=== PATIENT | female | born 1950 | race Caucasian/White ===

== ENCOUNTER 2024-08-14 16:08 | Emergency (ER) | payer MEDICARE, BC, SELFPAY ==
--- OUTSIDE RECORDS SUMMARY | 2024-08-14 16:09 | XMS_ITS | Encounter Summary ---
Author Organization [place] Address [address] [place] [address]. [place] [address] Care Team Providers Care Credit Associate Name Role Phone Chase Mueller MD Unavailable Coming Loren Dawson MD Unavailable + [phone] Doc Willis MD Unavailable Coming Loren Dawson MD Primary Care Provid er Doc Willis MD Unavailable Chase Mueller MD Unavailable Doc Willis MD Unavailable Encounter Details Date Type Department Care Team (Late st Contact Info) Description 07/25/2023 [facility] Medical Advice [facility] [address] [place] [phone] Timothy Hurtado Social History Tobacco Use Types Packs/Day Years Used Date Smoking Tobacco: Never Passive Smoke Exposure: Never Smokeless Tobacco: Never Alcohol Use Standard Drinks/Week Comments Yes 0 (1 standard drink = 0.6 oz pur e alcohol) one drink per month Social Connection and Isolat ion Panel [NHANES] Answer Date Recorded In a typical week, how many times do you talk on the phone with family, friends, or neighbors? More than three times a week 05/14/2023 How often do you get togethe r with friends or relatives? Three times a week 05/14/2023 How often do you attend [facility] or rastafarian services? More than 4 times per year 05/14/2023 Do you belong to any clubs o r organizations such as holiness groups, unions, fraternal or athletic groups, or school groups? Yes 05/14/2023 How often do you attend meet ings of the clubs or organizations you belong to? More than 4 times per year 05/14/2023 Are you , , di vorced, , never , or living with a partner? 05/14/2023 AUDIT-C Answer Date Recorded Q1: How often do you have a drink containing alc ohol? Monthly or less 05/14/2023 Q2: How many drinks containi ng alcohol do you have on a typical day when you are drinking? 1 or 2 05/14/2023 Q3: How often do you have si x or more drinks on one occasion? Never 05/14/2023 PHQ-2 Answer Date Recorded PHQ-2 Score 0 05/14/2023 [facility] - Occupational Stress Questionnaire Answer Date Recorded Do you feel stress - tense, restless, nervous, or anxious, or unable to sleep at night because your mind is troubled all the time - these days? To some extent 05/14/2023 Exercise Vital Sign Answer Date Recorde d On average, how many days pe r week do you engage in moderate to strenuous exercise (like a brisk walk)? 1 day 05/14/2023 On average, how many minutes do you engage in exercise at this level? 10 min 05/14/2023 Adolescent Education Answer Date Record ed Getting School Help Needed Not on file 11/16 Food Insecurity Answer Date Recorded Within the past 12 months, d id you worry that your food would run out before you got money to buy more? No 05/14/2023 Within the past 12 months, d id the food you bought just not last and you didn t have money to get more? No 05/14/2023 Housing Stability Answer Date Recorded Do you have housing? (Leandro g is defined as stable permanent housing and does not include staying outside in a car, in a tent, in an abandoned building, in an overnight penitentiary, or couch-surfing.) Yes 05/14/2023 Are you worried about losing your housing? No 05/14/2023 Financial Resource Strain Answer Date R ecorded Within the past 12 months, h ave you or your family members you live with been unable to get utilities (heat, electricity) when it was really needed? No 05/14/2023 Transportation Needs Answer Date Record ed Within the past 12 months, h as lack of transportation kept you from medical appointments, getting your medicines, non-medical meetings or appointments, work, or from getting things that you need? No 05/14/2023 Interpersonal Safety Answer Date Record ed Do you feel physically and e motionally safe where you currently live? Yes 05/14/2023 Within the past 12 months, h ave you been hit, slapped, kicked or otherwise physically hurt by someone? No 05/14/2023 Within the past 12 months, h ave you been humiliated or emotionally abused in other ways by your partner or ex-partner? No 05/14/2023 Comments No Sex and Gender Information Value Date Recorded Sex Assigned at Not on file Legal Sex Female 3:30 AM SCRAP CARRIER Gender Identity Not on file Sexual Orientation Not on file documented as of this encounter Plan of Treatment Upcoming Encounters Date Type Department Care Team (Late st Contact Info) Description 09/14/2024 8:45 AM CDT Lab [facility] [id number] [place] [phone] 09/17/2024 2:00 PM CDT Office Visit [facility] [id number] [place] [phone] [place] Dawson [place] [id number] [place] [address] documented as of this encounter Visit Diagnoses Not on filedocumented in this encounter Additional Health Concerns Assessment Noted Time PHQ-9 Depression Total Score: 1 12/30/19 21 7:28 AM SCRAP CARRIER documented as of this encounter Care Teams Credit Associate Relationship Specialty Start Date End Date Coming Loren Dawson [place] [id number] [place] [id number] PCP - General Family Medicine 02/24/22 [place] [address] [place] [address] Assigned Musculoskeletal Provider 12/04/19 10/03/23 [place] [address] [place] [address] Assigned PCP 01/15/21 Doc Willis MD [address] [place] [address] Dermatology 11/20/21 Doc Willis MD [address] [place] [address] Assigned Surgical Provider 05/19/22 [place] [address] [place] [address] Assigned Musculoskeletal Provider 01/04/24 Doc Willis MD [address] [place] [address] Assigned Dermatology Provider 05/03/24 documented as of this encounter
--- OUTSIDE RECORDS SUMMARY | 2024-08-14 16:09 | XMS_ITS | Encounter Summary ---
Author Organization [place] Address [address] [place] [address]. [place] [address] Care Team Providers Care Print Shop Chief Clerk Name Role Phone Louisa Kraus MD Primary Care Provider Chase Mueller MD Unavailable Haritha Brooks MD Unavailable [phone] Coming Loren Dawson MD Unavailable + [phone] Doc Willis MD Unavailable Coming Loren Dawson MD Primary Care Provid er Doc Willis MD Unavailable Chase Mueller MD Unavailable Doc Willis MD Unavailable Reason for Visit * Reason Comments Medication Refill Encounter Details Date Type Department Care Team (Late st Contact Info) Description 03/01/[address] [phone] [place] [address] [facility] [place] [address] Medication Refill Social History Tobacco Use Types Packs/Day Years Used Date Smoking Tobacco: Never Smokeless Tobacco: Never Alcohol Use Standard Drinks/Week Comments Yes 0 (1 standard drink = 0.6 oz pur e alcohol) one drink per month PHQ-2 Answer Date Recorded PHQ-2 Score 0 12/28/2020 Comments No Sex and Gender Information Value Date Recorded Sex Assigned at Not on file Legal Sex Female 3:30 AM HAT BRAIDER Gender Identity Not on file Sexual Orientation Not on file COVID-19 Exposure Response Date Recorded In the last month, have you been in contact with someone who was confirmed or suspected to have Coronavirus / COVID-19? No / Unsure 02/01/2021 7:34 AM HAT BRAIDER documented as of this encounter Miscellaneous Notes * Telephone Encounter - Radha Sheth RN - 03/02/2021 4:02 PM HAT BRAIDER Prescription approved per [facility] Refill Protocol. Radha Sheth RN [facility] -- Triage Nurse BRAIDER documented in this encounter Plan of Treatment Upcoming Encounters Date Type Department Care Team (Late st Contact Info) Description 09/14/2024 8:45 AM CDT Lab [facility] [address] [place] [phone] 09/17/2024 2:00 PM CDT Office Visit [facility] [address] [place] [phone] [place] [address] [place], [place] [phone] documented as of this encounter Visit Diagnoses Diagnosis Hyperlipidemia with target LDL less than 130 Other and unspecified hyperlipidemia HTN, goal below 140/90 Unspecified essential hypertension documented in this encounter Additional Health Concerns Infection Onset Date Last Indicated Resolved Time Rule Out COVID-19 04/05/2021 04/05/2021 04/05/2021 10:13 PM HAT BRAIDER COVID-19 04/05/2021 04/05/2021 04/26/2021 11:4 0 PM CDT Rule Out COVID-19 09/04/2021 09/04/2021 09/05/2021 10:01 AM CDT Assessment Noted Time PHQ-9 Depression Total Score: 1 12/30/19 21 7:28 AM HAT BRAIDER documented as of this encounter Care Teams Print Shop Chief Clerk Relationship Specialty Start Date End Date Louisa Kraus MD PCP - General Family Practice 05/07/14 02/23/22 [place] [address] [place], [place] [id number] PCP - General Family Medicine 02/24/22 [place] [address] [place] [address] Assigned Musculoskeletal Provider 12/04/19 10/03/23 Haritha Brooks MD [address] [place] [address] Assigned Surgical Provider 03/06/20 [place] [address] [place] [address] Assigned PCP 01/15/21 Doc Willis MD [address] [place] [address] Dermatology 11/20/21 Doc Willis MD [address] [place] [address] Assigned Surgical Provider 05/19/22 [place] [address] [place] [address] Assigned Musculoskeletal Provider 01/04/24 Doc Willis MD [address] [place] [address] Assigned Dermatology Provider 05/03/24 documented as of this encounter
--- OUTSIDE RECORDS SUMMARY | 2024-08-14 16:09 | XMS_ITS | Encounter Summary ---
Author Organization [place] Address [address] [place] [address]. [place] [address] Care Team Providers Care Advertising Intern Name Role Phone Chase Mueller MD Unavailable Coming Loren Dawson MD Unavailable + [phone] Doc Willis MD Unavailable Coming Loren Dawson MD Primary Care Provid er Doc Willis MD Unavailable Chase Mueller MD Unavailable Doc Willis MD Unavailable Reason for Visit * Reason Comments Medication Refill Encounter Details Date Type Department Care Team (Late st Contact Info) Description 03/22/[address] [phone] [place] [address] [place] [address] Medication Refill Social History Tobacco Use Types [...] on file Legal Sex Female 3:30 AM MARKET MANAGER Gender Identity Not on file Sexual Orientation Not on file COVID-19 Exposure Response Date Recorded In the last 10 days, have yo u been in contact with someone who was confirmed or suspected to have Coronavirus/COVID-19? No / Unsure 03/14/2022 10:48 AM MARKET MANAGER documented as of this encounter Miscellaneous Notes * Telephone Encounter - Nan Delgado RN - 03/23/2022 9:20 AM MARKET MANAGER Routing refill request to provider for review/approval because: Patient needs to be seen because it has been more than 1 year since last office visit. This is for lisinopril and simvastatin. Pt has upcoming appt scheduled. Appointments in Next Year Apr 02, 2022 1:00 PM (Arrive by 12:40 PM) Annual Wellness Visit with Loren Dawson MD [facility] ([facility] ) [phone] May 14, 2022 8:30 AM (Arrive by 8:15 AM) Return Visit with Doc Willis MD [facility] ([facility] ) [phone] ET MANAGER documented in this encounter Plan of Treatment Upcoming Encounters Date Type Department Care Team (Late st Contact Info) Description 09/14/2024 8:45 AM CDT Lab [facility] [address] [place] [phone] 09/17/2024 2:00 PM CDT Office Visit [facility] [address] [place] [phone] [place] [id number] [place] [address] [phone] documented as of this encounter Visit Diagnoses Diagnosis HTN, goal below 140/90 Unspecified essential hypertension Hyperlipidemia with target LDL less than 130 Other and unspecified hyperlipidemia documented in this encounter Additional Health Concerns Assessment Noted Time PHQ-9 Depression Total Score: 1 12/30/19 21 7:28 AM MARKET MANAGER documented as of this encounter Care Teams Advertising Intern Relationship Specialty Start [place] [address] [place] [address] PCP - General Family Medicine 02/24/22 [place] [address] [place] [address] Assigned Musculoskeletal Provider 12/04/19 10/03/23 [place] [address] [place] [address] Assigned PCP 01/15/21 Doc Willis MD [address] [place] [address] Dermatology 11/20/21 Doc Willis MD [address] [place] [address] Assigned Surgical Provider 05/19/22 [place] [address] [address] [place] [address] Assigned Musculoskeletal Provider 01/04/24 Doc Willis MD [address] [place] [address] Assigned Dermatology Provider 05/03/24 documented as of this encounter
--- OUTSIDE RECORDS SUMMARY | 2024-08-14 16:09 | XMS_ITS | Clinical Summary ---
Author Organization [place] Address [address] [place] [address]. [place] [address] Care Team Providers Care English Language Arts Teacher Name Role Phone Coming Loren Dawson MD Unavailable + [phone] Doc Willis MD Unavailable Coming Loren Dawson MD Primary Care Provid er Chase Mueller MD Unavailable Doc Willis MD Unavailable Allergies No known active allergies Medications BABY ASPIRIN PO Take 81 mg by mouth Active Cholecalciferol (VITAMIN D-3) 1000 UNITS CAPS Take by mouth daily Active Lutein 40 MG CAPS Take 20 mg by mouth daily Active Misc Natural Products (TART WEBER ADVANCED PO) Take 1,200 mg by mouth daily Active Cranberry 500 MG CAPS Active Glucos-Chondroit -Hyaluron-MSM (GLUCOSAMINE CHONDROITIN JOINT PO) Active Calcium Carb-Cholecalcif jojo (CALCIUM 600 + D PO) Take by mouth 2 times daily Active Multiple Vitamins-Mineral s (MULTIVITAL PO) Active IRON PO Take 65 mg by mouth Active EPINEPHrine (EPIPEN/ADRENACL ICK/OR ANY BX GENERIC EQUIV) 0.3 MG/0.3ML injection 2-pack Inject 0.3 mLs (0.3 mg) into the muscle as needed for anaphylaxis 0.6 mL 1 8 Active APPLE CIDER VINEGAR PO Take 450 mg by mouth daily Active Vitamin Mixture (KONSTANTIN-C PO) Take 500 mg by mouth 2 times daily Active lisinopril (ZESTRIL) 10 MG tabletIndication s:HTN, goal below 140/90 Take 1 tablet by mouth once daily 90 tablet 5 Active simvastatin (ZOCOR) 20 MG tabletIndication s:Hyperlipidemia with target LDL less than 130 TAKE 1 TABLET BY MOUTH AT BEDTIME 90 tablet 5 Active Active Problems Problem Noted Date Diagnosed Date Neoplasm of uncertain behavior of skin 8 Seborrheic keratoses 11/12/2017 Inflamed seborrheic keratosis 11/12/2017 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 Provider to review and confirm. Resolved Problems Problem Noted Date Diagnosed Date Resolved Date Thumb pain, right 11/19/2019 02/02/2020 Cervicalgia 08/13/2017 11/27/2017 Encounters Date Type Department Care Team Description 06/27/[address] [phone] Loren Berry MD Medication Refill 06/01/[address] [phone] Loren Berry MD Medication Refill 05/21/2024 8:17 AM CDT - 05/21/2024 11:59 PM CDT Hospital Encounter [facility] [address] [facility] [facility] [address] [place] [address] Loren Berry MD Visit for screening mammogram Discharge Disposition: Home or Self Care 05/21/2024 Travel from Last 3 Months Immunizations Immunization Administration Dates Next Due TD,PF 7+ (Tenivac) 09/09/2018 Zoster recombinant adjuvanted (Shingrix) 018,08/02/2017 Zoster vaccine, live 06/22/2011 Family History Medical History Relation Comments Other Cancer Brother bone cancer Cerebrovascular Disease Father Coronary Artery Disease Father Other Cancer Father Skin Cancer Father NMSC Diabetes Maternal Aunt Diabetes Mother Other Cancer Mother Skin Cancer Mother NMSC Thyroid Disease Mother Coronary Artery Disease Paternal Aunt Relation Status Comments Brother Father (Age 75) [place] Maternal Aunt Mother (Age 86) sepsis Paternal Aunt Social History Tobacco Use Types Packs/Day Years Used Date Smoking Tobacco: Never Passive Smoke Exposure: Never Smokeless Tobacco: Never Tobacco Cessation:Counseling Given: Not Answered Alcohol Use Standard Drinks/Week Comments Yes 0 [...] week 05/14/2023 How often do you attend chur ch or sabianist services? More than 4 times per year 05/14/2023 Do you belong to any clubs o r organizations such as congregation groups, unions, fraternal or athletic groups, or [...] Answer Date Recorded PHQ-2 Score 0 05/14/2023 [facility] - Occupational Stress Questionnaire Answer Date Recorded [...] Date Recorded Do you have housing? 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 Gender Identity Not on file Sexual Orientation Not on file Last Filed Vital Signs Vital Sign Reading Time Taken Comments Blood Pressure 132/84 05/14/2023 9:20 AM CDT Pulse 88 05/14/2023 9:20 AM CDT Temperature 36.6 C (97.9 F) 05/14/2023 9:20 AM CDT Respiratory Rate 19 05/14/2023 9:20 AM CDT Oxygen Saturation 99% 05/14/2023 9:20 AM CDT Inhaled Oxygen Concentration - - Weight 78 kg (172 lb) 05/14/2023 9:20 AM CDT Height 165.1 cm (5' 5) 05/14/2023 9:20 AM CDT Body Mass Index 28.62 05/14/2023 9:20 AM CDT Plan of Treatment Upcoming Encounters Date Type Department Care Team (Late st Contact Info) Description 09/14/2024 8:45 AM CDT Lab [facility] [address] [place] [phone] 09/17/2024 2:00 PM CDT Office Visit [facility] [id number] [place] [address] [phone] [place] [address] [place], [place] [phone] Health Maintenance Due Date Last Done Comments CT COLONOGRAPHY 1950 FIT 1950 FLEX SIG 1950 sDNA (Cologuard) 1950 PNEUMOCOCCAL VACCINE 50+ YEARS (1 of 1 - PCV) 2000 PHQ-2 (once per calendar year) 2024 05/14/2023, 04/02/2022, 12/28/2020, Additional history exists COVID-19 VACCINE ( season) 2024 10/19/2023, 03/14/2023, 02/24/2022, Additional history exists ANNUAL REVIEW OF HM ORDERS 05/13/2024 05/14/2023, BMP 05/13/2024 05/14/2023, 03/15, 02/01/2021, Additional history exists FALL RISK ASSESSMENT 05/13/2024 05/14/2023, 04/02/2022, 12/28/2020, Additional history exists LIPID 05/13/2024 05/14/2023, 03/15, 04/19/2021, Additional history exists MEDICARE ANNUAL WELLNESS VISIT 05/13/2024 05/14/2023, 04/02/2022, 04/02/2022, Additional history exists INFLUENZA VACCINE (Season Ended) 2024 12/28/2020 (Declined) RSV VACCINE (1 - 1-dose 75+ series) 2025 DIABETES SCREENING 05/13/2026 05/14/2023, 0 05/14/2023, 04/02/2022, Additional history exists MAMMO SCREENING 05/21/2026 05/21/2024, 03/15, 02/23/2022, Additional history exists ADVANCE CARE PLANNING 05/13/2028 05/14/2023 , 04/02/2022, 12/28/2020 DTAP/TDAP/TD VACCINE (1 - Tdap) 09/10/2028 09/09/2018 Postponed from 09/10/2018 (Other) COLONOSCOPY 12/18/2032 12/18/2022, 01/12/2012 COLORECTAL CANCER SCREENING 12/18/2032 DEXA 05/15/2037 05/15/2022 HEPATITIS C SCREENING Completed 09/02/2017 ZOSTER VACCINE Completed 10/04/2017, 07/13, 06/22/2011 HPV VACCINE Aged Out No longer eligi ble based on patient's age to complete this topic MENINGITIS VACCINE Aged Out No longer eligible based on patient's age to complete this topic Procedures Procedure Name Priority Date/Time Associated Diagnosis Comments MA SCREENING BILATERAL W/ GENE Routine 05/21/2024 8:32 AM CDT Visit for screening mammogram LIPID REFLEX TO DIRECT LDL PANEL Routine 05/14/2023 10:04 AM CDT Hyperlipidemia with target LDL less than 130 COMPREHENSIVE METABOLIC PANEL Routine 05/14/2023 10:04 AM CDT Encounter for Medicare annual wellness exam DX HIP/PELVIS/SPINE W LAT FRACTION ANALYSIS Routine 05/15/2022 9:19 AM CDT Postmenopausal status HEPATITIS C SCREEN REFLEX TO HCV RNA QUANT AND GENOTYPE Routine 09/02/2017 9:02 AM CDT Need for hepatitis C screening test COLONOSCOPY Routine 01/12/2012 Special screening for malignant neoplasms, colon from Last 3 Months or Most Recently Relevant to Health Maintenance Results * MA Screening Bilateral w/ Gene (05/21/2024 8:32 AM CDT) Anatomical Region Laterality Modality Breast Bilateral Mammography Impressions 05/21/2024 2:17 PM CDT IMPRESSION: ACR BI-RADS Category 1: Negative BREAST CANCER SCREENING RECOMMENDATION: Routine yearly mammography beginning at age 40 or as discussed with your provider. The results and recommendations of this examination will be communicated to the patient. Francheska Kennedy MD Narrative 05/21/2024 2:17 PM CDT BILATERAL FULL FIELD DIGITAL SCREENING MAMMOGRAM WITH TOMOSYNTHESIS Performed on: 05/21/24 Compared to: 04/04/2023, 02/23/2022, and 12/07/2020 Technique: This study was evaluated with the assistance of Computer-Aided Detection. Breast Tomosynthesis was used in interpretation. Findings: The breasts are heterogeneously dense, which may obscure small masses. There is no radiographic evidence of malignancy. May Aida Dawson MD IMG MAMMOGRAPHY ORDNatasha BIRCH Final Result * (ABNORMAL) Lipid panel reflex to direct LDL Fasting (05/14/2023 10:04 AM CDT) Cholesterol 159 <200 mg/dL 05/14/2023 5:18 PM CDT [facility] Triglycerides 216(H) <150 mg/dL 05/14/2023 5:18 PM CDT [facility] Direct Measure HDL 48(L) >=50 mg/dL 05/14/2023 5:18 PM CDT [facility] LDL Cholesterol Calculated 68 <=100 mg/dL 05/14/2023 5:18 PM CDT [facility] Non HDL Cholesterol 111 <130 mg/dL 05/14/2023 5:18 PM CDT [facility] Patient Fasting > 8hrs? Unknown 05/14/2023 5:18 PM CDT [facility] Blood BLOOD SPECIMEN / Unknown Venipuncture / Unknown 05/14/2023 10:04 AM CDT 05/14/2023 10:04 AM CDT Narrative [facility] - 05/14/2023 5:18 PM CDT Cholesterol Desirable: <200 mg/dL Triglycerides Normal: Less than 150 mg/dL Borderline High: 150-199 mg/dL High: 200-499 mg/dL Very High: Greater than or equal to 500 mg/dL Direct Measure HDL Female: Greater than or equal to 50 mg/dL Male: Greater than or equal to 40 mg/dL LDL Cholesterol Desirable: <100mg/dL Above Desirable: 100-129 mg/dL Borderline High: 130-159 mg/dL High: 160-189 mg/dL Very High: >= 190 mg/dL Non HDL Cholesterol Desirable: 130 mg/dL Above Desirable: 130-159 mg/dL Borderline High: 160-189 mg/dL High: 190-219 mg/dL Very High: Greater than or equal to 220 mg/dL May Aida Dawson MD LAB - BLOOD ORDERABL ES Final Result [facility] [address] [facility], [address] [phone] * (ABNORMAL) Comprehensive metabolic panel (BMP + Alb, Alk Phos, ALT, AST, Total. Bili, TP) (05/14/2023 10:04 AM CDT) Sodium 142 135 - 145 mmol/L 05/14/2023 5:18 PM CDT [facility] Comment:Reference intervals for this test were updated on 11/06/2022 to more accurately reflect our healthy population. There may be differences in the flagging of prior results with similar values performed with this method. Interpretation of those prior results can be made in the context of the updated reference intervals. Potassium 4.7 3.4 - 5.3 mmol/L 05/14/2023 5:18 PM CDT [facility] Carbon Dioxide (CO2) 28 22 - 29 mmol/L 05/14/2023 5:18 PM CDT [facility] Anion Gap 11 7 - 15 mmol/L 05/14/2023 5:18 PM CDT [facility] Urea Nitrogen 15.7 8.0 - 23.0 mg/dL 05/14/2023 5:18 PM CDT [facility] Creatinine 0.84 0.51 - 0.95 mg/dL 05/14/2023 5:18 PM CDT [facility] GFR Estimate 73 >60 mL/min/1. 73m2 05/14/2023 5:18 PM CDT [facility] Calcium 10.1 8.8 - 10.2 mg/dL 05/14/2023 5:18 PM CDT [facility] Chloride 103 98 - 107 mmol/L 05/14/2023 5:18 PM CDT [facility] Glucose 110(H) 70 - 99 mg/dL 05/14/2023 5:18 PM CDT [facility] Alkaline Phosphatase 79 40 - 150 U/L 05/14/2023 5:18 PM CDT [facility] Comment:Reference intervals for this test were updated on 12/25/2022 to more accurately reflect our healthy population. There may be differences in the flagging of prior results with similar values performed with this method. Interpretation of those prior results can be made in the context of the updated reference intervals. AST 32 0 - 45 U/L 05/14/2023 5:18 PM CDT [facility] Comment:Reference intervals for this test were updated on 07/23/2022 to more accurately reflect our healthy population. There may be differences in the flagging of prior results with similar values performed with this method. Interpretation of those prior results can be made in the context of the updated reference intervals. ALT 39 0 - 50 U/L 05/14/2023 5:18 PM CDT [facility] Comment:Reference intervals for this test were updated on 07/23/2022 to more accurately reflect our healthy population. There may be differences in the flagging of prior results with similar values performed with this method. Interpretation of those prior results can be made in the context of the updated reference intervals. Protein Total 7.5 6.4 - 8.3 g/dL 05/14/2023 5:18 PM CDT [facility] Albumin 4.6 3.5 - 5.2 g/dL 05/14/2023 5:18 PM CDT [facility] Bilirubin Total 0.3 <=1.2 mg/dL 05/14/2023 5:18 PM CDT [facility] Blood BLOOD SPECIMEN / Unknown Venipuncture / Unknown 05/14/2023 10:04 AM CDT 05/14/2023 10:04 AM CDT us Loren Dawson MD LAB - BLOOD ORDERABL ES Final Result [facility] [address] [facility], [address] [place] [phone] * DX Hip/Pelvis/Spine w Lat Fraction Kinsey (05/15/2022 9:19 AM CDT) Anatomical Region Laterality Modality Dexa Bone Mineral Den sity Narrative 05/17/2022 2:12 PM CDT BONE DENSITOMETRY [address] [address] 05/15/2022 PATIENT: Ann Marie Michael CHART: [id number] : 1950 AGE: [age] year old SEX: female REFERRING PROVIDER: Loren Berry MD PROCEDURE: Bone density scanning was performed using DXA technology of the lumbar spine and hip. Scanning was performed on a [employer] scanner. Reporting is completed in the form of a T-score. The T-score represents the standard deviation from peak bone mass based on a young healthy adult. REFERENCE T-SCORES: Normal -1.0 and greater Osteopenia Between -1.0 and -2.5 Osteoporosis -2.5 and less RISK FACTORS: Post-menopausal CURRENT TREATMENT: Calcium with Vitamin D FINDINGS: Lumbar Spine (L1-L4) T-score: 0.3 ,degenerative changes present Left Femoral Neck T-score: 0.0 Right Femoral Neck T-score: 0.1 Lumbar (L1-L4) BMD: 1.228 Total Hip Mean BMD: 1.218 LATERAL VERTEBRAL ASSESSMENT Procedure: Vertebral fracture assessment was performed in the lateral decubitus position using a Lunar Prodigy densitometer. Indications for VFA: age (female>69) Confounding factors for VFA: None. The LVA scan is interpretable from T7 to L4. VFA Findings: Using the semi-quantitative analysis of Genrandi there was evidence of no spinal deformity VFA Impression: Ann Marie Michael has no vertebral fractures identified on the VFA. IMPRESSION Normal bone mineral density., Degenerative changes of the lumbar spine which may falsely elevate results. Patient had a study performed previously, however the scans are not available to compare to the current study. Recommendations include ensuring adequate Calcium and Vitamin D. The current NOF Guidelines recommend treatment for patients with prior hip or vertebral fracture, T-score -2.5 or below, or 10 year risk of any major osteoporotic fracture 20% or greater, or 10 year risk of hip fracture 3% or greater as calculated using the FRAX calculator (www.shef.ac.uk/FRAX or you can google FRAX). This patient's risks based on available information, with the use of FRAX, are 7.0 % for major osteoporotic fracture and 0.4 % for hip fracture. Based on these guidelines, treatment (in addition to calcium and vitamin D) is not recommended for this patient, after ruling out other causes of osteoporosis. This is meant as an aid to clinical decision making; one must still use clinical judgement. Follow up can be considered in 5 years. Kate Licea M.D. Electronically signed May Aida Dawson MD IMG DEXA ORDERABLES Final Result * Hepatitis C Screen Reflex to HCV RNA Quant and Genotype (09/02/2017 9:02 AM CDT) Hepatitis C Antibody Nonreactive NR^Nonre active 09/03/2017 11:[address] [facility] Comment: Assay performance characteristics have not been established for newborns, infants, and children Blood specimen (specimen) 09/02/2017 9:02 AM CDT 09/02/2017 9:07 AM CDT Louisa Kraus MD LAB - BLOOD ORDERABLES Final Result [facility] [address] [place] [address], [facility] * COLONOSCOPY (01/12/2012) COLONOSCOPY Comment:pt states results we re normal 01/12/2012 Louisa Kraus MD PROCEDURES Final R esult from Last 3 Months or Most Recently Relevant to Health Maintenance Insurance MEDICARE [facility] [place] [employer] MEDICARE [facility] [place] [employer] [facility] [place] [employer] Care Teams English Language Arts Teacher Relationship Specialty Start [place] [address] [place] [address] PCP - General Family Medicine 02/24/22 [place] [address] [place] [address] Assigned PCP 01/15/21 Doc Willis MD [address] [place] [address] Dermatology 11/20/21 [place] [address] [place] [address] [place] [address] Assigned Musculoskeletal Provider 01/04/24 Doc Willis MD [address] [place] [address] Assigned Dermatology Provider 05/03/24
--- OUTSIDE RECORDS SUMMARY | 2024-08-14 16:09 | XMS_ITS | Encounter Summary ---
Author Organization [facility] Address [facility] [place] [address] Care Team Providers Care Belt Fixer Name Role Phone Louisa Kraus MD Primary Care Provider Chase Mueller MD Unavailable Haritha Brooks MD Unavailable [phone] Coming Loren Dawson MD Unavailable Doc Willis MD Unavailable Coming Loren Dawson MD Primary Care Provid er Doc Willis MD Unavailable Chase Mueller MD Unavailable Doc Willis MD Unavailable Encounter Details Date Type Department Care Team (Late st Contact Info) Description 04/05/2021 Orders Only [facility] Centralized Scheduling [address] [place] [phone] Tico Elaine MD [address] [place], [place] [phone] Suspected COVID-19 virus infection Social History Tobacco Use Types Packs/Day Years Used Date Smoking Tobacco: Never Smokeless Tobacco: Never Alcohol Use Standard Drinks/Week Comments Yes 0 (1 standard drink = 0.6 oz pur e alcohol) one drink per month PHQ-2 Answer Date Recorded PHQ-2 Score 0 12/28/2020 Comments No Sex and Gender Information Value Date Recorded Sex Assigned at Not on file 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 Yes 04/05/2021 2:49 PM SLEEPING CAR SERVICE ATTENDANT documented as of this encounter Plan of Treatment Upcoming Encounters Date Type Department Care Team (Late st Contact Info) Description 09/14/2024 8:45 AM CDT Lab [facility] [address] [place] [phone] 09/17/2024 2:00 PM CDT Office Visit [facility] [address] [place] [phone] Drew Dawson May MD Aida [address] [place] [address] documented as of this encounter Results * (ABNORMAL) Symptomatic; Auto-generated order COVID-19 Virus (Coronavirus) by PCR Nose (04/05/2021 2:50 PM SLEEPING CAR SERVICE ATTENDANT) SARS CoV2 PCR Positive(A ) Negative 04/05/2021 10:13 PM SLEEPING CAR SERVICE ATTENDANT [facility] Comment:POSITIVE: SARS-CoV-2 (COVID-19) RNA detected, presumed positive. Swab NASAL STRUCTURE / Unknown Non-blood Collection / Unknown 04/05/2021 2:50 PM SLEEPING CAR SERVICE ATTENDANT 04/05/2021 3:40 PM SLEEPING CAR SERVICE ATTENDANT Narrative [facility] - 04/05/2021 10:13 PM SLEEPING CAR SERVICE ATTENDANT Testing was performed using the Aptima SARS-CoV-2 Assay on the [employer] Instrument System. Additional information about this Emergency Use Authorization (EUA) assay can be found via the Lab Guide. This test should be ordered for the detection of SARS-CoV-2 in individuals who meet SARS-CoV-2 clinical and/or epidemiological criteria. Test performance is unknown in asymptomatic patients. This test is for in vitro diagnostic use under the FDA EUA for laboratories certified under CLIA to perform high complexity testing. This test has not been FDA cleared or approved. A negative result does not rule out the presence of PCR inhibitors in the specimen or target RNA in concentration below the limit of detection for the assay. The possibility of a false negative should be considered if the patient's recent exposure or clinical presentation suggests COVID-19. This test was validated by the [facility]. This laboratory is certified under the Clinical Laboratory Improvement Amendments of 1988 (CLIA-88) as qualified to perform high complexity laboratory testing. Tico Elaine MD LAB - MICRO GENERAL ORDERABLES F inal Result [facility] Inf. Diseases Diag. Lab [address] [facility], [address] [place] [address], [facility] [phone] documented in this encounter Visit Diagnoses Diagnosis Suspected COVID-19 virus infection documented in this encounter Additional Health Concerns Infection Onset Date Last Indicated Resolved Time Rule Out COVID-19 04/05/2021 04/05/2021 04/05/2021 10:13 PM SLEEPING CAR SERVICE ATTENDANT COVID-19 04/05/2021 04/05/2021 04/26/2021 11:4 0 PM CDT Rule Out COVID-19 09/04/2021 09/04/2021 09/05/2021 10:01 AM CDT Assessment Noted Time PHQ-9 Depression Total Score: 1 12/30/19 21 7:28 AM SLEEPING CAR SERVICE ATTENDANT documented as of this encounter Care Teams Belt Fixer Relationship Specialty Start Date End Date Louisa Kraus MD PCP - General Family Practice 05/07/14 02/23/22 [place] [address] [facility] [place] [address] PCP - General Family Medicine 02/24/22 [place] [address] [place] [address] Assigned Musculoskeletal Provider 12/04/19 10/03/23 Haritha Brooks MD [address] [facility] [place] [address] Assigned Surgical Provider 03/06/20 [place] [address] [place] [address] Assigned PCP 01/15/21 Doc Willis MD [address] [place] [address] MD Dermatology 11/20/21 Doc Willis MD [address] [place] [address] Assigned Surgical Provider 05/19/22 [place] [address] [place] [address] Assigned Musculoskeletal Provider 01/04/24 Doc Willis MD [address] [place] [address] Assigned Dermatology Provider 05/03/24 documented as of this encounter
--- OUTSIDE RECORDS SUMMARY | 2024-08-14 16:10 | XMS_ITS | Clinical Summary ---
Author Organization [employer] [facility] Address [address] [place] [id number] Care Team Providers Care Rodding Anode Worker Name Role Phone Pcp, No Primary Care Provider Unavailabl e Allergies No known active allergies Medications lisinopril (PRINIVIL; ZESTRIL) 10 mg tablet Take 1 tablet by mouth once daily. 0 0 Active simvastatin (ZOCOR) 20 mg tablet Take 1 tablet by mouth at bedtime. 0 0 Active polyethylene glycol-electroly te (GOLYTELY) 236-22.74-6.74 -5.86 gram suspensionIndica tions:Encounter for screening colonoscopy Drink 2 liters the day before the procedure and 2 liters 6 hours prior to procedure. 4000 mL 3 Active Active Problems Problem Noted Date Diagnosed Date Personal history of colonic polyps 08/02/2011 Overview (12/21/2022): Colonoscopy 07/2011 normal repeat in 5 years Colonoscopy 09/2016 polyps repeat in 5 years Colonoscopy 12/2022 hyperplastic polyp, repeat in 7 years Immunizations Immunization Administration Dates Next Due Td (Age >=7 Years) 12/12/2004 Social History Tobacco Use Types Packs/Day Years Used Date Smoking Tobacco: Never Smokeless Tobacco: Never Tobacco Cessation:Counseling Given: Yes Alcohol Use Standard Drinks/Week Comments Not Currently 0 (1 standard drink = 0.6 oz pur e alcohol) Comments No Sex and Gender Information Value Date Recorded Sex Assigned at Not on file Legal Sex Female 5:26 AM [employer] Gender Identity Not on file Sexual Orientation Not on file Obstetrics History Last Filed Vital Signs Vital Sign Reading Time Taken Comments Blood Pressure 141/68 12/18/2022 9:37 AM [facility] Pulse 84 12/18/2022 9:37 AM [employer] [facility] Temperature 37.4 C (99.3 F) 12/25/2009 4:01 PM [employer] [facility] Respiratory Rate 14 12/18/2022 9:37 AM [employer] Oxygen Saturation 92% 12/18/2022 9:37 AM [employer] Inhaled Oxygen Concentration - - Weight 74.8 kg (165 lb) 12/25/2009 4:01 PM [facility] Height - - Body Mass Index - - Plan of Treatment Health Maintenance Due Date Last Done Comments Depression screening for age 12+ 1962 BMI (ht and wt on same day) for age 18+ 1968 Hepatitis C screening for age 18-79 1968 Lipids for age 45-75 10/06/1995 Mammogram for age 45-75 10/06/1995 Pneumococcal series for age 50+ (1 of 1 - PCV) 2000 Zoster (shingles) series for age 50+ (1 of 2) 2000 Tetanus booster 12/12/2014 12/12/2004 DEXA/DXA scan for age 65+ 10/06/2015 Medicare Wellness for age 65+ 10/06/2015 COVID-19 vaccine series (2023- season) 2023 02/24/2022, 07/27/2021, 12/14/2020, Additional history exists Influenza Vaccine (#1) 2024 RSV vaccine for adults or (1 - 1-dose 75+ series) 2025 Colonoscopy through age 75 12/18/202912/18, 12/18/2022, 09/19/2016, Additional history exists Hepatitis B series for 19+ Aged Out N o longer eligible based on patient's age to complete this topic Procedures Procedure Name Priority Date/Time Associated Diagnosis Comments COLONOSCOPY 12/18/2022 8:57 AM [facility] from Last 3 Months or Most Recently Relevant to Health Maintenance Results * COLONOSCOPY (12/18/2022 8:57 AM [facility]) 12/18/2022 8:57 AM [facility] Narrative Transcriptions Mikhail Soliz MD - 12/18/2022 9:24 AM CST Patient Name: Ann Marie Michael Procedure Date: 12/18/2022 Gender: Female Date of : 1950 Admit Type: Outpatient Procedure: Colonoscopy Proceduralist: Mikhail Soliz MD , Lauren Gonsales (Nurse), Carolyn Oropeza (Nurse) Indications/Pre-Op Diagnosis: High risk colon cancer surveillance:Personal history of adenoma less than 10 mm in size, High risk colon cancer surveillance:Personal history of sessile serrated colon polyp(less than 10 mm in size) with no dysplasia Medications: The level of sedation administered was moderate, Fentanyl 100 micrograms IV,Midazolam 3 mg IV Procedure Description: The patient had risks, benefits and alternatives explained to andgave informed consent. The patient had a stable cardiopulmonary status and judged an adequate candidate for conscious sedation. The PCF-H190L [id number] was passed through the anus and advanced to the cecum, identified by appendiceal orifice and ileocecal valve. The colonoscopy was performed without difficulty. The patient toleratedthe procedure well. The quality of the bowel preparation was good. The ileocecal valve, appendiceal orifice, and rectum were photographed. Complications: No immediate complications. Estimated Blood Loss & Specimen: Estimated blood loss: none. Specimen collected - Yes and sent to Laboratory Findings: The perianal and digital rectal examinations were normal. Scattered small-mouthed diverticula were found in the sigmoidcolon. Two sessile polyps were found in the distal rectum. The polyps were 2mm in size. These polyps were removed with a cold biopsy forceps.Resection and retrieval were complete. The exam was otherwise without abnormality. Impressions/Post-Op Diagnosis: - Diverticulosis in the sigmoid colon. - Two 2 mm polyps in the distal rectum, removed with a cold biopsy forceps. Resected and retrieved. - The examination was otherwise normal. Recommendation: - Patient has a contact number available for emergencies. The signsand symptoms of potential delayed complications were discussed with the patient. Return to normal activities tomorrow. Written discharge instructions were provided to the patient. - Resume previous diet. - Continue present medications. - Await pathology results. - Repeat colonoscopy is recommended. The colonoscopy date will be determined after pathology results from today's exam become available for review. Moderate Sedation: A time out was performed before the procedure. Moderate (conscious) sedation was administered by the endoscopy nurse and supervised bythe endoscopist. The following parameters were monitored: oxygensaturation, heart rate, blood pressure, EKG, CO2, respiratory rate, adequacy of pulmonary ventilation and reponse to care. Please refer to the patient's medical record flowsheets and nursing notes for moderate sedation details. Total physician intraservice time was 16 minutes. Mikhail Soliz MD 12/18/2022 9:24:35 AM This report has been signed electronically. Note Initiated On: 12/18/2022 8:57 AM Procedure Code(s): --- Professional --- 92340, Colonoscopy, flexible; with biopsy, single or multiple Diagnosis Code(s): --- Professional --- D12.8, Benign neoplasm of rectum Z86.010, Personal history of colonicpolyps K57.30, Diverticulosis of large intestine without perforation or abscess withoutbleeding CPT copyright 2021 [employer]. All rights reserved. The codes documented in this report are preliminary and upon air motor repairer reviewmay be revised to meet current compliance requirements. Scope In: 9:00:30 AM Scope Withdrawal Time 0 hours 10 minutes 0 seconds Scope Out: 9:14:12 AM us Mikhail Soliz MD PROCEDURE ORD Final Res ult from Last 3 Months or Most Recently Relevant to Health Maintenance Insurance [employer] [place] ONLY Care Teams Rodding Anode Worker Relationship Specialty Start Date End Date Pcp, Yessi . PCP - General 12/18/22
[2024-08-14 16:24] VITALS: BP 164/94; PULSE 106; RESP 16; TEMP 36.5; O2SAT 96; BMI 28.9
--- NOTE | 2024-08-14 17:39 | ED.GENADULT ---
HPI - General Adult General Date Seen: 08/14/24 Chief complaint: Dizziness/Vertigo Stated complaint: Dizziness/ Hypertension Time Seen by Provider: 08/14/24 17:31 History of Present Illness HPI narrative: 73-year-old female presenting to the ER today with her from home for evaluation of dizziness. Her dizziness began this afternoon. She was carrying some items in from her car into the house. She is also having left arm tingling and says her left arm feels ?funny?. She has a history of hypertension on lisinopril and dyslipidemia on Zocor. She is not anticoagulated. She does take 1 baby aspirin per day and has been taking it for years for primary prophylaxis. She has no history of cardiovascular disease. She does have a family history of stroke and heart attack in her father She has been healthy and well lately. She was out doing some errands this morning in the go get some plans but was not really out in the heat. She went to visit her daughter, [place] [employer], around lunch and was in the air conditioning than 2. She got home shortly after noon and she was bringing in some groceries from the car and putting a load of laundry in the washer when she started to feel dizzy. She thinks it probably started when she was bending over in the washer. She has a hard time describing what her dizziness of his. It is slightly off balance and she says she feels slightly lightheaded. She is not really feeling like she is going to faint. No spinning or sensation of movement. No palpitations. No chest pain. No shortness of breath. She decided to go sit down in a chair and rest for a while. While sitting in the chair she felt fine. She rested for about an hour so but then got up again and was again unsteady. It sounds like this unsteadiness happens whenever she is up and gets better if she holds still and gets better when she lays or sits down. Also this afternoon she started to have an ache in her left shoulder left upper arm and a little bit of ache in her neck (although neck pain is not unusual for her. She has lot of neck pain but does not carry a formal diagnosis of arthritis). She is not having headache. Vision is normal. No blurry vision or diplopia. No slurred speech. No facial droop. No weakness or numbness in her arms or legs. No chest pain. No back pain. No palpitations. No abdominal pain. No nausea. No vomiting. She is on lisinopril over the long-term for her high blood pressure in general has very good control of blood pressure except for she has white coat hypertension. Because she was dizzy, she measured her blood pressure at home and it was uncharacteristically elevated for her in the range of 160-180 systolic. She also measured her pulse rate was elevated at 120. It is not normal for her heart rate to be elevated. She also admits she was anxious and worried. Related Data Home Medications ?Medication ?Instructions ?Recorded ?Confirmed lisinopril 10 mg tablet 10 mg PO DAILY 08/14/24 08/14/24 simvastatin 20 mg tablet 20 mg PO QPM 08/14/24 08/14/24 Allergies Allergy/AdvReac Type Severity Reaction Status Date / Time No Known Drug Allergies Allergy Verified 08/14/24 16:23 [facility] Social History Smoking Status: Never smoker How often do you have a drink containing alcohol: never AUDIT-C Alcohol total score: 0 Non-prescribed substance use: denies use Exam Narrative: Exam Narrative: Constitutional: Appears well-developed and well-nourished. Alert. Conversant. Non toxic. HENT: Head: Atraumatic. No depressed skull fracture, Raccoon Eyes, Worley's sign, or hemotympanum. Face normal. TMs normal. Both canals are partly occluded by cerumen but visualized TMs are normal. Nose: Nose normal. Mouth/Throat: Oral mucosa is clear and moist. no trismus. Pharynx normal. Tonsils symmetric. No tonsillar enlargement, erythema, or exudate. Eyes: Conjunctivae normal. EOM normal. Pupils equal, round, and reactive to light. No scleral icterus. Neck: Normal range of motion. Neck supple. No tracheal deviation present. Cardiovascular: Normal rate, regular rhythm. No gallop. No friction rub. No murmur heard. Symmetric radial artery pulses Pulmonary/Chest: Effort normal. No stridor. No respiratory distress. No wheezes. No rales. No rhonchi . No tenderness. Abdominal: Soft. Bowel sounds normal. No distension. No mass. No tenderness. No rebound. No guarding. Musculoskeletal: RUE: Normal range of motion. No tenderness. No deformity LUE: Normal range of motion. No tenderness. No deformity RLE: Normal range of motion. No edema. No tenderness. No deformity LLE: Normal range of motion. No edema. No tenderness. No deformity Neurological: Mental status normal. Attention normal. Alert and oriented x3. GCS 15. Memory normal. Speech fluent. Cognition normal. Cranial Nerves intact II-XII except I did not formally test gag or visual acuity. EOMI. Palate elevates symmetrically and tongue protrudes in the midline. Strength: 5/5 trapezius on the right and left 5/5 deltoid on the right and left 5/5 biceps on the right and left 5/5 triceps on the right and left 5/5 animal cruelty investigator on the right and left 5/5 thumb opposition on the right and left 5/5 finger abduction on the right and left 5/5 hip flexors (L3) on the right and left 5/5 quadriceps (L4) on the right and left 5/5 tibialis anterior on the right and left 5/5 EHL (L5) on the right and left 5/5 gastrocnemius (S1) on the right and left 5/5 hamstring on the right and left Sensation intact to light touch in both upper extremities (C4-T1) Sensation intact to light touch in Both lower extremities (L4-S1). Finger to nose and coordination normal. Gait normal. While lying in bed extraocular movements are normal and no nystagmus. When I have the patient stand up she does seem to have a little bit of force until nystagmus. She is not otherwise feeling spinning vertigo. No ataxia. Skin: Skin is warm and dry. No rash noted. No pallor. Normal capillary refill. Psychiatric: Normal mood. Normal affect. Const: Vital Signs, click to edit/add: Vital Signs - 24 hr 08/14/24 16:24 08/14/24 18:43 08/14/24 19:19 Temperature 97.7 F 97.1 F L Pulse Rate [Pulse Oximeter] 106 H 84 77 Respiratory Rate 16 18 16 Blood Pressure [Ri ght Upper Arm] 164/94 H 171/98 H 178/93 H Pulse Oximetry 96 96 96 Oxygen Delivery Me thod Room Air Room Air Room Air Course Course ED Course: Recheck-patient reports her dizziness symptoms have resolved. Has been ambulatory in hallway. Although the route he ambulation trial and she was steady. I do not see any ongoing nystagmus. No other associated neurologic deficits. Vital Signs Vital signs: Initial Vital Signs Temperature 97.7 F 08/14/24 16:24 Temperature Source Temporal Artery Scan 08/14/24 16:24 Pulse Rate 106 H 08/14/24 16:24 Pulse Rhythm Regular 08/14/24 16:24 Respiratory Rate 16 08/14/24 16:24 Blood Pressure 164/94 H 08/14/24 16:24 Blood Pressure Mean 117 H 08/14/24 16:24 Blood Pressure Position Sitting 08/14/24 16:24 Pulse Oximetry 96 08/14/24 16:24 Oxygen Delivery Method Room Air 08/14/24 16:24 Vital Signs Temperature 97.7 F 08/14/24 16:24 Pulse Rate 106 H 08/14/24 16:24 Respiratory Rate 16 08/14/24 16:24 Blood Pressure 164/94 H 08/14/24 16:24 Pulse Oximetry 96 08/14/24 16:24 Oxygen Delivery Method Room Air 08/14/24 16:24 Temperature 97.1 F L 08/14/24 18:43 Pulse Rate 77 08/14/24 19:19 Respiratory Rate 16 08/14/24 19:19 Blood Pressure 178/93 H 08/14/24 19:19 Pulse Oximetry 96 08/14/24 19:19 Oxygen Delivery Method Room Air 08/14/24 19:19 Medications Administered Medications: Discontinued Medications Generic Name Dose Route Start Last Admin Trade Name Freq PRN Reason Stop Dose Admin Sodium Chloride 1,000 mls @ 1,000 mls/hr 08/14/24 18:15 08/14/24 20:25 0.9 % Sodium Chloride 1000 Ml IV 08/14/24 19:14 Infused .Q1H BAILEY Infusion Meclizine HCl 25 mg 08/14/24 18:08 08/14/24 18:32 Meclizine Hcl 25 Mg Tablet PO 08/14/24 18:09 25 mg ONCE ONE Administration Medical Decision Making [facility] Narrative Medical decision making narrative: Very pleasant 73-year-old female presenting to the ER today with unsteadiness and dizziness that began this afternoon about 12:00 p.m.. She has a difficult time really describing the dizziness. It sounds like she just feels unsteady and lightheaded but not really presyncopal and not classic spinning vertigo. It has been intermittent and typically only occurs when standing up which also could suggest orthostasis. However no recent heat exposure or diarrhea or clear symptoms of dehydration On my exam I did note a little bit of horizontal nystagmus notable only with the patient standing. She has no other focal deficits. She does have a little bit of pain in the back of her neck (which is chronic in my 90 minutes related to the dizziness). Given the potential for a vertebral artery problem a causing a variant of vertigo we did feel that imaging was indicated. Fortunately CT scan of her head and CT angio of her head neck are essentially negative. She does have a little bit of atherosclerosis affecting her carotid bulbs but this would be an anterior circulation abnormality and not a high-grade stenosis requiring emergent vascular surgery consultation. More importantly it is not a pathology in the vertebral basilar system which would be most link to vertigo. Consider possible acute coronary syndrome causing her lightheadedness. EKG shows sinus rhythm and no ischemia and troponin is undetectable. She is not actually having any chest pain or shortness of breath at all. With symptoms ongoing since noon, I do think a troponin drawn here in the ER sufficient to rule out NSTEMI at this time. Labs show normal blood sugar, normal electrolytes. Normal kidney function. Hemoglobin is normal. No recent symptoms of upper GI bleeding or other bleeding. Blood pressure is stable, in fact, elevated. She did report blood pressure is elevated in the 160-180 range at home and she is in that range here. At this point I do not see any sign of an acute hypertensive emergency such as an acute stroke, mi, renal failure. No retinal symptoms. Her dizzy symptoms resolved here in the ER. Despite that she did have some persistent elevated blood pressure readings. At this point I do not think the high blood pressure is causing her dizziness but more likely is secondary to it. At this point no evidence for any acute hypertensive emergency. She and her are comfortable plan to discharge her home with close outpatient follow-up with PCP for blood pressure check. Precautions for return to the ER reviewed. Lab Data Labs: Lab Results 08/14/24 08/14/24 Range/Units 18:23 19:09 WBC 7.99 (4.50-11.00) K/uL RBC 4.02 (4.00-5.20) m/uL Hgb 13.1 (12.0-16.0) gm/dL Hct 39.9 (33.0-51.0) % MCV 99 (80-100) fL MCH 33 (26-34) pg MCHC 33 (32-36) gm/dL RDW Coeff of [place] 12.0 (11.5-15.5) % Plt Count 211 (140-440) K/uL Neut % (Auto) 56.0 (42.0-72.0) % Lymph % (Auto) 29.8 (20-44) % [place] % (Auto) 11.5 H (0.0-11.0) % Eos % (Auto) 2.0 (0.0-7.0) % Baso % (Auto) 0.6 (0.0-3.0) % Neut # (Auto) 4.47 (1.7-7.0) K/uL Lymph # (Auto) 2.38 (0.90-2.90) K/uL [place] # (Auto) 0.90 (0.00-0.90) K/UL Eos # (Auto) 0.16 (0.00-0.50) K/uL Baso # (Auto) 0.05 (0.00-0.30) K/uL Abs Immat Gran (auto) 0.01 (0.00-0.30) K/uL Imm/Tot Granulo (auto) 0.1 % Sodium 138 (135-149) mmol/L Potassium 3.8 (3.6-5.1) mmol/L Chloride 103 (96-114) mmol/L Carbon Dioxide 30 (20-32) mmol/L Anion Gap 5 L (7-15) mEq/L BUN 20 (7-30) mg/dL Creatinine 0.8 (0.5-1.5) mg/dL Estimated Creat Clear 45.09 Estimated GFR 78 ml/min Glucose 105 (60-115) mg/dL Lactate 0.7 (0.5-1.9) mmol/L Calcium 9.4 (8.4-10.6) mg/dL Troponin I < 0.01 (0.01-0.04) ng/mL Urine Color Yellow (Yellow) Urine Appearance Clear (Clear) Urine pH 5.5 (5.0-8.5) Ur Specific [place] 1.010 (1.000-1.030) Urine Protein Negative (Negative) Urine Glucose (UA) Negative (Negative) Urine Ketones Negative (Negative) Urine Blood Negative (Negative) Urine Nitrite Negative (Negative) Urine Bilirubin Negative (Negative) Urine Urobilinogen 0.2 (0.2-1.0) Ur Leukocyte Esterase 1+ A (Negative) Urine RBC 0-2 (0-2) Urine WBC 2-5 (0-5) Ur Squamous Epith Cells Few (None-Few) Urine Bacteria Few A (None) Imaging Data CTA Head and Neck: Attestation: I have reviewed the pertinent imaging results. Radiologist's impression: CTA head: No emergent large vessel occlusion or high-grade intracranial arterial stenosis. CTA neck: No high-grade cervical arterial stenosis. Atherosclerotic changes carotid bulbs. CT scan - head: Attestation: I have reviewed the pertinent imaging results. Radiologist's impression: IMPRESSION:1. No CT evidence of acute cortical infarct. No acute intracranial hemorrhage. No other acute intracranial findings. ECG Data Attestation: I personally reviewed and interpreted this ECG as follows: Interpretation: Normal sinus rhyth Rate: 96 [place]: 148. Possible left atrial enlargement. QRS axis: Normal axis. No pathologic Q-waves. ST segment/T wave: Nonspecific T-wave flattening in leads 3, AVF, V1-V6. No ST segment elevation or depression. QTc: 409 Discharge Plan Discharge Clinical Impression: Dizziness, Hypertension Patient Disposition: Home, Self-Care Condition: Stable Instructions: Hypertension (ED), Dizziness (ED) Additional Instructions: As we discussed, so far your workup looks reassuring. We do not see any sign of any blocked vertebral arteries, strokes, or bleeding in your brain. No signs of heart attack, atrial fibrillation, or other cardiac arrhythmia. I am glad you are feeling better. Your blood pressure is still higher than goal. Please keep an eye on this and measure at once per day at home for the next few days and recheck with your regular doctor within 1 week for a blood pressure check. If you have any further symptoms such as more episodes of dizziness, or if you have new symptoms such as palpitations, chest pain, headache, facial droop or slurred speech, or any other stroke symptoms, please call 911 or return to the ER immediately. Activity Level: No Restrictions Discharge Diet: Regular Prescriptions: No Action simvastatin 20 mg tablet 20 mg PO QPM lisinopril 10 mg tablet 10 mg PO DAILY Follow Up/Referrals: Provider,Not a Local [Primary Care Provider, Family Practice] Stand Alone Forms: [employer] Info Instructions
--- NOTE | 2024-08-14 18:08 | CRLHL7_ITS ---
For Patients: As a result of the Century Cures Act, medical imaging exams and procedure reports are released immediately into your electronic medical record. You may view this report before your referring provider. If you have questions, please contact your health care provider. DATE: 08/14/2024 CLINICAL HISTORY: Patient with headache and tightness. TECHNIQUE: Standard helical CT image acquisition through the intracranial circulation following intravenous administration of contrast material with bolus tracking. 2D and 3D MIP images for post-processing were performed and interpreted on an independent workstation and 3D images were permanently archived. COMPARISON: CT same day. FINDINGS: There is no cerebral aneurysm or large vessel occlusion. The right internal carotid artery is normal. The right middle cerebral artery and its branches are normal. The right anterior cerebral artery and its branches are normal. The left internal carotid artery is normal. The left middle cerebral artery and its branches are normal. The left anterior cerebral artery and its branches are normal. The anterior communicating artery is well visualized and appears normal. The right vertebral artery and PICA are normal. The left vertebral artery and PICA are normal. The right vertebral artery is dominant. The basilar artery is patent and appears normal. The right posterior cerebral artery is normal. The left posterior cerebral artery is normal. The visualized venous structures are patent. IMPRESSION: Patent proximal intracranial vasculature without intracranial aneurysms. Please note that all CT scans at this facility use dose modulation, iterative reconstruction, and/or weight-based dosing when appropriate to reduce radiation dose to as low as reasonably achievable. Dictated by Kari Daley MD @ 08/14/2024 9:39:38 PM (Electronically Signed)
--- NOTE | 2024-08-14 18:09 | CRLHL7_ITS ---
For Patients: As a result of the Century Cures Act, medical imaging exams and procedure reports are released immediately into your electronic medical record. You may view this report before your referring provider. If you have questions, please contact your health care provider. INDICATION: Head and neck tightness. TECHNIQUE: CT of the head without contrast. Coronal and sagittal reformats are included. COMPARISON: None. FINDINGS: No CT evidence of acute cortical infarct. No loss of rand white matter differentiation. No hyperdense vessels to suggest intracranial thrombus. No acute intracranial hemorrhage. No mass effect or midline shift. No hydrocephalus or extra-axial collections. White matter is within normal limits for age. No acute osseous abnormalities. Mastoid air cells and paranasal sinuses are clear. Normal soft tissues. IMPRESSION: IMPRESSION:1. No CT evidence of acute cortical infarct. No acute intracranial hemorrhage. No other acute intracranial findings. Please note that all CT scans at this facility use dose modulation, iterative reconstruction, and/or weight-based dosing when appropriate to reduce radiation dose to as low as reasonably achievable. Dictated by Deny Blanc MD @ 08/14/2024 7:43:34 PM (Electronically Signed)
--- NOTE | 2024-08-14 18:09 | CRLHL7_ITS ---
For Patients: As a result of the Century Cures Act, medical imaging exams and procedure reports are released immediately into your electronic medical record. You may view this report before your referring provider. If you have questions, please contact your health care provider. DATE: 08/14/2024 CLINICAL HISTORY: Patient with neck pain and tightness. TECHNIQUE: Standard helical CT image acquisition of the neck up to the skull base after bolus intravenous contrast enhancement. 2D and 3D MIP images for post-processing were performed and interpreted on an independent workstation and 3D images were permanently archived. COMPARISON: CT same day. FINDINGS: The origins of the great vessels from the aortic arch are patent. The origin of the right vertebral artery is patent. The origin of the left vertebral artery is patent. The common carotid arteries are patent. There is plaque without stenosis at the origin of the right internal carotid artery. There is no stenosis at the origin of the left internal carotid artery. The rest of the cervical segments of the internal carotid arteries are patent up to the skull base. The right vertebral artery is dominant. The cervical segments of the vertebral arteries are patent up to the skull base. The visualized lung apices are unremarkable. The thyroid gland is unremarkable. The soft tissues of the neck are unremarkable. There are degenerative changes in the cervical spine. IMPRESSION: Patent cervical vasculature. Please note that all CT scans at this facility use dose modulation, iterative reconstruction, and/or weight-based dosing when appropriate to reduce radiation dose to as low as reasonably achievable. Dictated by Kari Daley MD @ 08/14/2024 9:37:37 PM (Electronically Signed)
[2024-08-14 18:31] LABS: Hematocrit 39.9 % (33.0-51.0); Hemoglobin* 13.1 gm/dL (12.0-16.0); Immature Granulocytes Abs Auto 0.01 K/uL (0.00-0.30); Immature Granulocytes Pct Auto 0.1 %; Lymphocytes Absolute Auto 2.38 K/uL (0.90-2.90); Mean Corpuscular HGB Conc 33 gm/dL (32-36); Mean Corpuscular Hemoglobin 33 pg (26-34); Mean Corpuscular Volume 99 fL (80-100); RDW Coefficient of Variation % 12.0 % (11.5-15.5); Red Blood Count 4.02 m/uL (4.00-5.20); White Blood Count* 7.99 K/uL (4.50-11.00)
[2024-08-14 18:32] LABS: Lactate* 0.7 mmol/L (0.5-1.9)
[2024-08-14] MEDS: MECLIZINE HCL 25 MG TABLET PO (18:32)
[2024-08-14 18:43] VITALS: BP 171/98; PULSE 84; RESP 18; TEMP 36.2; O2SAT 96
[2024-08-14 18:52] LABS: Slide Review Reflex No
[2024-08-14 18:53] LABS: Chloride* 103 mmol/L (96-114); Potassium* 3.8 mmol/L (3.6-5.1); Sodium* 138 mmol/L (135-149)
[2024-08-14 18:56] LABS: Anion Gap 5 mEq/L (7-15); Blood Urea Nitrogen* 20 mg/dL (7-30); Calcium* 9.4 mg/dL (8.4-10.6); Carbon Dioxide* 30 mmol/L (20-32); Creatinine* 0.8 mg/dL (0.5-1.5); Est. Creatinine Clearance* 45.09; Estimated Glomerular Filt Rate 78 ml/min; Glucose* 105 mg/dL (60-115)
[2024-08-14 19:19] VITALS: BP 178/93; PULSE 77; RESP 16; O2SAT 96
[2024-08-14 19:26] LABS: Appearance Urine Clear (Clear)
== END 2024-08-14 20:54 | disposition home or self-care (01) ==
PROVIDERS: Emergency Provider Emergency Medicine
DX: R42 Dizziness and giddiness (principal); I10 Essential (primary) hypertension; R20.2 Paresthesia of skin; M54.2 Cervicalgia; M25.512 Pain in left shoulder; Z79.899 Other long term (current) drug therapy
CPT/HCPCS: 36415; 70450; 70496; 70498; 80048; 81001; 83605; 84484; 85025; 87086; 93005; 96360; 99283; 99284; 99285; A9270; J7030; Q9967